=== PATIENT | male | born 1960 | race African-American/Black ===

== ENCOUNTER 2017-01-19 07:58 | Day surgery (SDC) | payer MEDICAID ==
[~2017-01-19] VITALS: Ht 175.3 cm; Wt 110.0 kg
[~2017-01-19 07:58] MED LIST: ALLO100T PO; AMLO-512 PO; ASPI-1093 PO; FURO20 PO; GABA-531 PO; GLIP5 PO; HYDR-309 PO; KDUR10 PO; LISI-662 PO; METO-323 PO; MULT-1082 PO; PROPOFOL 1% 20 ML VIAL IVP ONE; RANI150T7 PO; VITAD1000 PO; ZINC50TA38 PO
[2017-01-19] MEDS ORDERED: SODIUM CHLORIDE 0.9% 1,000 ML IV ONE ×2 (08:14→08:30)
[2017-01-19 08:47] LABS: GLUCOSE,POINT OF CARE 94 MG/DL (70-110)
[2017-01-19] MEDS ORDERED: OXYGEN THERAPY IH SCH (10:30)
== END 2017-01-19 11:25 | disposition home or self-care (01) ==
LOC: SURGERY 07:58
PROVIDERS: ATTEND Specialist
DX: K63.5 Polyp of colon (principal); K62.1 Rectal polyp; K64.8 Other hemorrhoids; E11.9 Type 2 diabetes mellitus without complications; I10 Essential (primary) hypertension; J44.9 Chronic obstructive pulmonary disease, unspecified; M19.90 Unspecified osteoarthritis, unspecified site; E66.3 Overweight; Z95.0 Presence of cardiac pacemaker; Z87.891 Personal history of nicotine dependence; Z80.42 Family history of malignant neoplasm of prostate
CPT/HCPCS: 45380; 45385; 82525; 82962; 88305; 93005; C1769; J2704; J7030